=== PATIENT | female | born 1975 | race Caucasian/White ===

== ENCOUNTER → 2025-07-09 15:02 | Outpatient (BNVA) | payer BC, SELFPAY | PROVIDERS: Family Provider Family Medicine; PCP Family Medicine; Visit Provider Podiatrist Foot & Ankle Surgery | DX: M25.572 Pain in left ankle and joints of left foot (principal); S92.102A Unspecified fracture of left talus, initial encounter for closed fracture; X58.XXXA Exposure to other specified factors, initial encounter | CPT/HCPCS: 73610 ==

== ENCOUNTER 2025-07-22 17:01 | Outpatient (CLI) | payer BC, SELFPAY ==
--- NOTE | 2025-07-22 17:15 | CT_ITS ---
WS: [id number] CT LEFT ANKLE, WITHOUT HISTORY: left ankle pain Technique: All CT scans at [facility] use at least one of these dose optimization techniques: automated exposure control; mA and/or kV adjustment per patient size (includes targeted exams where dose is matched to clinical indication); or iterative reconstruction. DLP: 121.90 mGy.cm COMPARISON: Radiograph 07/09/2025. History: LEFT lateral ankle pain. No known injury. Distal tibia and fibula are intact. No fractures. No significant osteophytosis. No osteochondral lesions along the talar dome or tibial plafond. Enthesopathy measuring 7 mm at the Achilles tendon insertion site to the posterior calcaneus. There is an additional plantar aponeurosis spur measuring 8 mm. Normal tarsometatarsal alignment. No coalition is evident. There is mild soft tissue edema along the lateral malleolus. There is mild thickening and subtle increased soft tissue in the peroneal tendon sheath at the level of the distal fibular tip. No loose bodies are identified. CT/CT ankle LT wo con* [id number] IMPRESSION: 1. No acute fracture. 2. Mild soft tissue edema along the lateral malleolus. 3. There is mild thickening and increased fluid in the peroneal tendon sheath at the level of the distal fibular tip. Consider MRI ankle evaluation to better evaluate the peroneal tendons and beni altamirano
== END 2025-07-22 17:02 | disposition home or self-care (01) ==
LOC: RAD 17:03
PROVIDERS: Family Provider Family Medicine; PCP Family Medicine; Visit Provider Podiatrist Foot & Ankle Surgery
DX: M25.572 Pain in left ankle and joints of left foot (principal)
CPT/HCPCS: 73700

== ENCOUNTER 2025-09-23 20:32 | Emergency (ER) | payer BC, SELFPAY ==
--- OUTSIDE RECORDS SUMMARY | 2025-09-23 20:37 | XMS_ITS | Encounter Summary ---
Author Organization [facility] Address [address] [place] [address] Care Team Providers Care Anthropologist Physical Name Role Phone Shona Lo DO Primary Care Provider Encounter Details Date Type Department Care Team (Latest Contact Info) Description 03/29/2005 Outpatient Historical [facility] Medicine [place] [address] [id number] Zulema Hardy MD [address] [place] [id number] VAGINITIS NOS (Primary Dx); URGE INCONTINENCE Social History Tobacco Use Types Packs/Day Years Used Date Smoking Tobacco: Never Assessed Comments Unknown Sex and Gender Information Value Date Recorded Sex Assigned at Not on file 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
--- OUTSIDE RECORDS SUMMARY | 2025-09-23 20:37 | XMS_ITS | Clinical Summary ---
Author Organization [facility] Address [address] [place] [address] Care Team Providers Care Pcmh Specialist Name Role Phone Shona Lo Primary Care Provider Allergies Active Allergy Reactions Criticality Noted Date Comments Sulfa (Sulfonamide Antibiotics) Nausea and Vomiting Low 03/25/2016 Medications zolpidem (AMBIEN) 10 mg tabletIndication s:Primary insomnia TAKE 1 TABLET BY MOUTH EVERY DAY AT BEDTIME NEEDED FOR INSOMNIA 30 Tablet 5 0 Active albuterol HFA 90 mcg inhalerIndicatio ns:Acute bronchitis, unspecified organism Take 2 Puffs by inhalation every 6 hours as needed for Shortness of Breath. 8.5 Gram 1 Active ibuprofen (MOTRIN) 800 mg tabletIndication s:Chronic migraine Take 1 Tablet (800 mg) by mouth every 6 hours as needed for Pain, Mild. 45 Tablet 1 Active Ethinyl Estradiol-Norelg estrom (Xulane) 150-35 mcg/24 hr Patch Weekly PATCH APPLY ONCE A WEEK. TAKE CONTINUOUSLY. 4 Patch 8 1 Active Active Problems Problem Noted Date Diagnosed Date Primary insomnia 08/13/2017 Gastroesophageal reflux disease without esophagi tis 08/13/2017 Morbid obesity with BMI of 45.0-49.9, adult 03/14 Migraine without aura and wi thout status migrainosus, not intractable 03/25/2016 Generalized anxiety disorder Anemia Immunizations Immunization Administration Dates Next Due (PNEUMOVAX 23)(50 YRS UP) PN EUMOCOCCAL POLYSACCHARIDE (PPV23) 0.5 ML, IM 11/11/2013 Influenza Seasonal Unspecified Formulation IM Influenza Vaccine Split 3+ Yrs IM 08/22/2014,10/2009 Family History Medical History Relation Name Comments Healthy Brother Diabetes Father High Cholesterol Father Hypertension Father Breast Cancer Maternal Grandmother Cancer Maternal Grandmother breast and rectal cancer Colon Cancer Maternal Grandmother rectal cancer Diabetes Maternal Grandmother High Cholesterol Maternal Grandmother Hypertension Maternal Grandmother Stroke Maternal Grandmother Thyroid Disease Maternal Grandmother High Cholesterol Mother Cancer Paternal Grandfather mesothe lioma Heart Disease Paternal Grandfather High Cholesterol Sister Relation Name Status Comments Brother Father Maternal Grandmother Mother Paternal Grandfather Sister Social History Tobacco Use Types Packs/Day Years Used Date Smoking Tobacco: Former Cigarettes Q uit: 11/13/1992 Smokeless Tobacco: Never Comments:smoked occ Alcohol Use Standard Drinks/Week Comments Not Asked 0 (1 standard drink = 0.6 oz pur e alcohol) Comments No Sex and Gender Information Value Date Recorded Sex Assigned at Not on file 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 Gender Identity Not on file Sexual Orientation Not on file Last Filed Vital Signs Vital Sign Reading Time Taken Comments Blood Pressure 126/78 03/13/2021 2:09 PM CDT Pulse 100 03/13/2021 2:09 PM CDT Temperature 36.2 C (97.2 F) 03/13/2021 2:09 PM CDT Respiratory Rate 18 03/13/2021 2:09 PM CDT Oxygen Saturation 94% 03/13/2021 2:09 PM CDT Inhaled Oxygen Concentration - - Weight 113.4 kg (250 lb) 03/13/2021 2:09 PM CDT Height 160 cm (5' 3 ) 07/11/2018 2:56 PM CDT Body Mass Index 44.29 07/11/2018 2:56 PM CDT Plan of Treatment Health Maintenance Due Date Last Done Comments DTAP/TDAP/TD VACCINES (1 - Tdap) 1993 HEPATITIS B VACCINES (1 of 3 - 19+ 3-dose series) 1993 CERVICAL CANCER SCREENING 05/03/2016 PAP SMEAR 05/03/2016 05/03/2013, 04/01/2009 Pre-Diabetes and Diabetes Screening 01/23/2017 01/23/2014 HPV/Cotest (21-29) 05/03/2018 05/03/2013 HPV/Cotest (30-65) 05/03/2018 05/03/2013 COLORECTAL SCREENING 2019 Colorectal Cancer Screening 2019 FIT-DNA Q 3 years 2019 FIT/FOBT Q 1 year 2019 Flex Sig/CT Colonography Q 5 years 2019 ZOSTER VACCINE (1 of 2) 02/28/2024 BREAST CANCER SCREENING 05/17/2025 05/17/2024, 05/21 INFLUENZA VACCINE (#1) 2025 4, 11/30/2012, 08/24/2009 Preventative Visit- Commercial Completed 0 07/02/2025, 05/02/2024, 03/08/2024, Additional history exists Procedures Procedure Name Priority Date/Time Associated Diagnosis Comments HEMOGLOBIN A1C Routine 01/23/2014 MAMMO SCREENING BILAT Routine 05/21/2013 Well woman exam CERV/VAG CYTOPATH, THIN PREP IMAGR RFLX HPV Routine 05/03/2013 3:40 PM CDT from Last 3 Months or Most Recently Relevant to Health Maintenance Results * HEMOGLOBIN A1C (01/23/2014) SHELL RECORD 708 EXTERNAL LAB HEMOGLOBIN A1C 4.7 - 6.4 % EXTERNAL LAB HEMOGLOBIN A1C EXTERNAL LAB GLUCOSE, MEAN BLOOD EXTERNAL LAB ABSTRACTED HGB A1C 5.7 EXTERNAL LAB Blood specimen (specimen) 01/23/2014 us Abstract Spg Provider CHEMISTRY ORDERABLES Final Result EXTERNAL LAB * MAMMO SCREENING BILAT (05/21/2013) Anatomical Region Laterality Modality Breast Bilateral Other us Shona Lo DO MAMMO ORDERABLES Final Resu lt * CERV/VAG CYTOPATH, THIN PREP IMAGR RFLX HPV (05/03/2013 3:40 PM CDT) IH COMPUTING TUTOR CYTOLOGY REPORT REFLEX HPV [facility] [address] [facility] [address] Patient: NIHARIKA RODGERS Accn No: [id number] , [id number] Collected: 05/03/2013 3:40:00 PM All cases except those with a DP prefix are performed by pathologists from [facility] at [facility]. Case type DP is performed by Dr. Ayad Leavitt, [facility], [facility] [address], [address], [place] [address] (CLIA #[id number]) (Ph. [phone]). COMPUTING TUTOR PAP - REFLEX HPV History Specimen Type: Endocervical LMP: 04/27/13 Previous Pap History: WNL Specimen Adequacy Satisfactory for interpretation. The smear lacks endocervical or metaplastic cells. Diagnosis NEGATIVE FOR INTRAEPITHELIAL LESION OR MALIGNANCY. (Previously noted as Within Normal Limits). Sap Hana Architect/ ALLEGRAM Pathologist: 05/14/13 Completed by: ETHEL ABAD BSNICKO(ASCP) (Electronically signed by) 05/14/13 Comment Routine follow-up is suggested. Important Information About Pap Smears The Pap smear is associated with a low but well-documented and probably irreducible false negative rate of up to 10%. Additionally, the false positive rate for a diagnosis of invasive carcinoma or HSIL has been estimated to be approximately 1-10%. Therefore, any visible lesion on the cervix should be biopsied regardless of Pap smear findings. HPV Testing off the Thin Prep vial can be done as a means of further evaluating a Thin Prep Report. For information about ordering the HPV test, phone Virology at . Treatment or follow-up recommendations (if any) that are contained within this report are based upon general recommendations as contained in 2001 Consensus Guidelines For Cervical Cytological Abnormalities [place]: March 06, 2002, and are provided as a general guideline rather than as a specific recommendation. Final decisions about the most appropriate treatment and follow-up should be made on an individualized basis by the treating physician in consultation with his/her patient. [facility] 05/03/2013 3:40 PM CDT Shona Lo DO PATHOLOGY/CYTOLOGY ORDERABL ES Edited Result - Final INTERFACE SYSTEM Refer to clinic/hospital department [facility] CLIA# [id number] [address] [place] [address] from Last 3 Months or Most Recently Relevant to Health Maintenance Insurance [address] [place] [address] [employer] [facility] Care Teams Pcmh Specialist Relationship Specialty Start Date End Date Shona Lo DO [address] [place] [address] PCP - General 01/26/10
[2025-09-23 20:44] VITALS: BP 154/107; PULSE 98; RESP 16; TEMP 36.8; O2SAT 96; BMI 50.3
--- NOTE | 2025-09-23 21:14 | W.ED.ANIMALB ---
HPI - Animal Bite General: Chief Complaint: Animal Bite Stated Complaint: Cat Scatch Time Seen by Provider: 09/23/25 21:04 Source: patient and family Mode of arrival: ambulatory Limitations: no limitations History of Present Illness: Patient is a 50-year-old female presents to ED today along with her daughter who is also being seen for same complaint here for cat bite. Patient states her and her mother were trying to rescue a kitten from a storm drain. They state once they got into the house the cat bit both of them multiple times as well as scratched them. Tetanus is not up-to-date. They state they will not be able to quarantine the animal as they are going to turn it over to an animal mcc tomorrow. complaint: animal bite Onset (ago): hour(s) Animal: cat Description of animal: unknown animal, wild animal and immunizations unknown Mechanism: bite and scratch Location - Extremities: Bilateral: hand Context: provoked Associated symptoms: Reports no associated symptoms; Deny fever(s) or headache(s) Related Data Home Medications ?Medication ?Instructions ?Recorded ?Confirmed docusate sodium 100 mg capsule 100 mg PO DAILY 05/21/25 07/09/25 (Dulcolax Stool Softener (docusate)) medroxyprogesterone 2.5 mg tablet 2.5 mg PO DAILY 05/21/25 07/09/25 zolpidem 10 mg tablet mg PO 05/21/25 07/09/25 famotidine 20 mg tablet 20 mg PO DAILY 07/09/25 07/09/25 multivitamin 1 tab PO DAILY 07/09/25 07/09/25 Previous Rx's ?Medication ?Instructions ?Recorded amoxicillin 875 mg-potassium 1 tab PO BID #14 tabs 09/23/25 clavulanate 125 mg tablet Allergies Allergy/AdvReac Type Severity Reaction Status Date / Time Sulfa (Sulfonamide Allergy Intermediate Unknown Verified 09/23/25 20:49 Antibiotics) Review of Systems Const: Denies: fever(s) Musc: Reports: extremity pain; Denies: extremity swelling, joint pain or joint swelling Skin/Breast: Reports: other (cat bite/scratches) Neuro: Denies: headache(s), numbness in extremities, weakness in extremities or sensory changes PFSH ED PFSH: Social History Smoking and tobacco/nicotine status: unknown if used tobacco/nicotine Physical Exam Const: COMMON NORMALS: no acute distress, average body habitus, no limitations, healthy appearing, alert and well nourished Extremity: COMMON NORMALS: full ROM and capillary refill normal GENERAL: Yes normal exam except as noted OTHER: multiple small bite punctures and scratches to hands/fingers; one scratch to scalp; no redness, edema, streaking; NV intact; no tendon involvement Neuro: COMMON NORMALS: moves all extremities, no focal motor deficits and no sensory deficits noted SENSORIUM/ORIENTATION: Yes alert Skin: NARRATIVE SKIN EXAM: see above Course Vital Signs: Vital signs: Vital Signs Temperature 98.3 F 09/23/25 20:44 Pulse Rate 98 09/23/25 20:44 Respiratory Rate 16 09/23/25 20:44 Blood Pressure 154/107 09/23/25 20:44 Pulse Oximetry 96 09/23/25 20:44 Oxygen Delivery Me thod Room Air 09/23/25 20:44 MDM - Animal Bite Medical Decision Making Patient will be started on rabies PEP. Tetanus will be updated. She will be placed on prophylactic antibiotics. Wound care/infection precautions discussed. She will be discharged home with a schedule for the remainder of her rabies series. Differential Diagnosis Likely bite by animal and cat bite Medical Records I reviewed the patient's medical records. No radiology studies performed this visit Discharge Plan Discharge Patient Disposition: Home Clinical Impression: Cat bite Condition: Stable Prescriptions: New amoxicillin-pot clavulanate 875-125 mg tablet 1 tab PO BID Qty: 14 0RF No Action medroxyprogesterone 2.5 mg tablet 2.5 mg PO DAILY docusate sodium [Dulcolax Stool Softener (dss)] 100 mg capsule 100 mg PO DAILY zolpidem 10 mg tablet PO multivitamin Tablet 1 tab PO DAILY famotidine 20 mg tablet 20 mg PO DAILY Discharge Orders: Discharge ED (Routine); Ordered 09/23/25 Ordered By: Ashley Soares Referrals: Shona Lo DO [Primary Care Provider, Family Practice] Patient Instructions: Animal Bite (ED), Patient Portal & Adrian Instructions Activity Restrictions/Additional Instructions: Keep wounds clean with warm soap and water multiple times daily. Monitor for signs of infection such as redness, swelling, streaking up your forearm, worsening pain, fevers, or any other concerns you may have. Please seek medical re-evaluation if these occur. Please fill your antibiotics tomorrow and start them immediately. You have been given a dose prior to discharge this evening. Your tetanus has been updated today. He has been started on rabies postexposure prophylaxis. You should be discharged home with a schedule for the remainder of your immunizations to be completed at our infusion center. 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
[2025-09-23] MEDS: tetanus-dipt-pertussis 0.5 mL SDV IM (21:56)
[2025-09-23] MEDS: rabies IG 300 unit/mL SDV 1 mL 2580 UNIT IM (21:56)
[2025-09-23] MEDS: rabies vaccine 2.5 unit SDV IM (21:57)
== END 2025-09-23 22:11 | disposition home or self-care (01) ==
PROVIDERS: Emergency Provider Physician Assistant; PCP Family Medicine
DX: Z20.3 Contact with and (suspected) exposure to rabies (principal); S61.452A Open bite of left hand, initial encounter; S61.451A Open bite of right hand, initial encounter; W55.01XA Bitten by cat, initial encounter; Z29.14 Encounter for prophylactic rabies immune globulin
CPT/HCPCS: 90375; 90471; 90675; 90715; 96372; 99283; J9999

== ENCOUNTER 2025-10-07 15:39 | Oncology outpatient (recurring) (ONCR) | payer BC, SELFPAY ==
[2025-09-26] MEDS: rabies vaccine 2.5 unit SDV IM (09:13)
[2025-09-30] MEDS: rabies vaccine 2.5 unit SDV IM (16:01)
[2025-10-07] MEDS: rabies vaccine 2.5 unit SDV IM (15:56)
== END 2025-10-12 23:59 | disposition home or self-care (01) ==
PROVIDERS: PCP Family Medicine; Visit Provider Physician Assistant
DX: Z23 Encounter for immunization; Z20.3 Contact with and (suspected) exposure to rabies; W55.01XD Bitten by cat, subsequent encounter; Z53.9 Procedure and treatment not carried out, unspecified reason
CPT/HCPCS: 90471; 90675